=== PATIENT | male | born 1975 | race Caucasian/White ===

== ENCOUNTER 2020-01-23 09:27 | Emergency (ER) | payer OTHER ==
--- NOTE | 2020-01-23 09:57 | EKG REPORT ---
SEVERITY:- NORMAL ECG - SINUS RHYTHM : Confirmed by: Melissa Ware 23-Jan-2020 09:56:50
--- NOTE | 2020-01-23 10:25 | ER Document Report ---
ED Medical Screen (RME) - General Chief Complaint: Chest Pain Stated Complaint: CHEST PAIN Time Seen by Provider: 01/23/20 10:18 Mode of Arrival: Ambulatory Information source: Patient Notes: 54-year-old male presented to ED for complaint of chest pain that started last night in the epigastric area and went around to the back. Now with substernal chest pain. He states it is very sharp 4-5 pain. He smokes a pack a day drinks maybe every 4 5 months no drugs works at [employer] states he has no medical or surgical history. Patient is alert oriented respirations regular nonlabored speaking in full sentences. He denies any nausea vomiting fever. I have greeted and performed a rapid initial assessment of this patient. A comprehensive ED assessment and evaluation of the patient, analysis of test results and completion of medical decision making process will be conducted by an additional ED providers. - Related Data Allergies/Adverse Reactions: No Known Allergies Allergy (Verified 01/23/20 10:18) Physical Exam - Vital signs Vitals: Temp Pulse Resp BP Pulse Ox 97.9 F 55 L 18 134/78 H 100 01/23/20 09:43 01/23/20 09:43 01/23/20 09:43 01/23/20 09:43 01/23/20 09:43 Course - Vital Signs Vital signs: Temp Pulse Resp BP Pulse Ox 97.9 F 55 L 18 134/78 H 100 01/23/20 09:43 01/23/20 09:43 01/23/20 09:43 01/23/20 09:43 01/23/20 09:43
[2020-01-23] MEDS ORDERED: LIDOCAINE 2% VISCOUS SOLN 15 ML UDCUP PO ONE (10:49)
[2020-01-23] MEDS ORDERED: MAG HYDROX/AL HYDROX/SIMETH SUSP 30 ML UDCUP PO ONE (10:49)
[2020-01-23] MEDS ORDERED: METOCLOPRAMIDE HCL ORAL SOLN 10 MG/10 ML UDCUP PO ONE (10:49)
--- NOTE | 2020-01-23 10:53 | ER Document Report ---
ED General - General Chief Complaint: Chest pain Stated Complaint: CHEST PAIN Time Seen by Provider: 01/23/20 10:18 Mode of Arrival: Ambulatory - HPI Notes: 44-year-old male presents emergency room with epigastric abdominal pain that started at 1:00 this morning while playing video game states that it bothered him for a little while, did not take any ywrl-[id number] medications in the mid to bed. Patient states when he got up to go to work this morning he noticed pain in the epigastric area that traveled over his ribs, reports pain is 4 out of 5 reports that it is sharp and tight, denies any pressure on the chest. Patient states that the pain radiates to his back. Patient states he had a carmen lar event a month ago and it lasted around 5 to 6 hours. 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 Patient states he smokes about a pack a day for the last 30 years, does not take any medications. Patient does not know his family history due to adoption. Patient has not gone to a doctor in "years". Reports his last bowel movement was yesterday. Has not tried any ramh-vmk-[id number] medications for these issues. - Related Data Allergies/Adverse Reactions: No Known Allergies Allergy (Verified 01/23/20 10:18) Past Medical History - General Information source: Patient - Social History Smoking Status: Current Every Day Smoker Chew tobacco use (# tins/day): No Frequency of alcohol use: Rare Drug Abuse: None Family History: Reviewed & Not Pertinent Review of Systems - Review of Systems Constitutional: No symptoms reported EENT: No symptoms reported Cardiovascular: See HPI Respiratory: No symptoms reported Gastrointestinal: See HPI Genitourinary: No symptoms reported Male Genitourinary: No symptoms reported Musculoskeletal: No symptoms reported Skin: No symptoms reported Hematologic/Lymphatic: No symptoms reported Neurological/Psychological: No symptoms reported Physical Exam - Vital signs Vitals: Temp Pulse Resp BP Pulse Ox 97.9 F 55 L 18 134/78 H 100 01/23/20 09:43 01/23/20 09:43 01/23/20 09:43 01/23/20 09:43 01/23/20 09:43 - Notes Notes: MEDICATIONS: I agree with the patient medications as charted by the RN. ALLERGIES: I agree with the allergies as charted by the RN. PAST MEDICAL HISTORY/PAST SURGICAL HISTORY: Reviewed and agree as charted by RN. SOCIAL HISTORY: Reviewed and agree as charted by RN. FAMILY HISTORY: No significant familial comorbid conditions directly related to patient complaint EXAM: Reviewed vital signs as charted by RN. PHYSICAL EXAMINATION:reviewed vital signs by RN GENERAL: Well-appearing, well-nourished and in no acute distress. HEAD: Atraumatic, normocephalic. EYES: Pupils equal round and reactive to light, extraocular movements intact, sclera anicteric, conjunctiva are normal. ENT: Nares patent, oropharynx clear without exudates. Moist mucous membranes. NECK: Normal range of motion, supple without lymphadenopathy LUNGS: Breath sounds clear to auscultation bilaterally and equal. No wheezes rales or rhonchi. HEART: Regular rate and rhythm without murmurs ABDOMEN: Soft, epigastric tenderness, right upper quadrant tenderness on palpation, positive Pruitt sign nondistended abdomen. No guarding, no rebound. No masses appreciated. Musculoskeletal: Normal range of motion, no pitting or edema. No cyanosis. NEUROLOGICAL: Cranial nerves grossly intact. Normal speech, normal gait. Normal sensory, motor exams PSYCH: Normal mood, normal affect. SKIN: Warm, Dry, normal turgor, no rashes or lesions noted. Course - Re-evaluation Re-evalutation: 01/23/20 10:53 Afebrile vital stable no distress. Nurses notes reviewed. CBC negative for leukocytosis or anemia, CMP negative for hepatic renal dysfunction, lipase normal. Troponin normal x2. EKG unremarkable. Heart score is 1 which is a risk of myocardial infarction 0.9 to 1.7%. patient given GI cocktail which he states did help with his pain. right upper quadrant ultrasound unremarkable. CT abdomen pelvis does show contracted gallbladder with gallstones in the gallbladder neck. Mild gallbladder wall thickening may be secondary to contracted state. Cannot exclude acute cholecystitis. Contacted Dr.Faustino Meyer, surgeon community relations liaison, at 1530, he states he will come down to see patient. Initially Dr. Meyer stated that he was going to admit patient however patient refuses to stay and states that he will see Dr. Meyer outpatient for outpati ent surgery. Discussed with patient that he does need to follow a low-fat diet. Dr. Meyer did not any medications such as antibiotics or PPI. Patient states that he would like to go home today and not have surgery today, we will give him pain medications to go home with. advised to not drive, drink alcohol or operate heavy machinery while taking pain medication because sedation, impairment of cognitive function. Advised to make an appointment with outpatient surgery to have his outpatient cholecystectomy. Patient was agreeable and stated he would do this. Advised patient to return to the emergency room immediately if he experiences any worsening symptoms. After performing a Medical Screening Examination, I estimate there is LOW risk for ACUTE APPENDICITIS, BOWEL OBSTRUCTION,, PERFORATED DIVERTICULITIS, INCARCERATED HERNIA, PANCREATITIS, TESTICULAR TORSION or PERFORATED ULCER, thus I consider the discharge disposition reasonable. Also, there is no evidence or peritonitis, sepsis, or toxicity. I have reevaluated this patient multiple times and no significant life threatening changes are noted. The patient and I have discussed the diagnosis and risks, and we agree with discharging home with close follow-up with the understanding that symptoms and presentations can change. We also discussed returning to the Emergency Department immediately if new or worsening symptoms occur. We have discussed the symptoms which are most concerning (e.g., bloody stool, fever, changing or worsening pain, intractable vomiting - standard verbal up date) that necessitate immediate return. 01/23/20 16:32 - Vital Signs Vital signs: Temp Pulse Resp BP Pulse Ox 97.9 F 55 L 17 130/86 H 100 01/23/20 09:43 01/23/20 09:43 01/23/20 13:01 01/23/20 15:01 01/23/20 15:01 - Laboratory Result Diagrams: 01/23/20 11:15 01/23/20 11:15 Laboratory results interpreted by me: 01/23/20 11:15 Urine Blood SMALL H - EKG Interpretation by Hi EKG shows normal: Sinus rhythm Rate: Bradycardia Additional EKG results interpreted by ia: 01/23/20 10:52 Heart rate 55, normal sinus rhythm, P axis 80, QRS axis 43, T axis 39. Was interpreted by Dr. Griffiths, [facility] [place] physician. No other prior EKG to refer to for comparison. No STEMI, no ST segment elevations. Discharge - Discharge Clinical Impression: Acute cholecystitis Condition: Stable Disposition: HOME, SELF-CARE Unit Admitted: Surgical Floor Instructions: Low-Fat Diet ([facility]) Additional Instructions: Dr. Meyer, surgeon was at bedside and states that you opted to have outpatient cholecystectomy done because he did not want to stay in the hospital. Is imperative that you follow a low-fat diet and follow-up with the outpatient surgery center to make an appointment to have your gallbladder removed. If it anytime you have any worsening pain, vomiting, please return to the emergency room immediately Forms: Return to Work Referrals: DOROTHY MEYER MD [ACTIVE STAFF] - Follow up tomorrow (make an appointment with out patient surgery) TREV LOUISE MD [COMMUNITY BASED STAFF] - Follow up as needed
[2020-01-23 11:41] LABS: ABSOLUTE BASOPHILS # (AUTO) 0.1 10^3/uL (0.0-0.2); ABSOLUTE EOSINOPHILS # (AUTO) 0.3 10^3/uL (0.0-0.6); ABSOLUTE LYMPHOCYTES (AUTO) 1.8 10^3/uL (0.5-4.7); ABSOLUTE MONOCYTES (AUTO) 0.5 10^3/uL (0.1-1.4); ABSOLUTE NEUT (AUTO) 4.4 10^3/uL (1.7-8.2); BASOPHILS % (AUTO) 1.5 % (0-2); EOSINOPHILS % (AUTO) 4.3 % (0-6); HEMATOCRIT 41.5 % (37.9-51.0); HEMOGLOBIN 14.4 g/dL (13.5-17.0); LYMPHOCYTES % (AUTO) 25.6 % (13-45); MEAN CORPUSCULAR HGB CONC 34.7 g/dL (32.0-36.0); MEAN CORPUSCULAR VOLUME 87 fl (80-97); MONOCYTES % (AUTO) 7.1 % (3-13); PLATELET COUNT 278 10^3/uL (150-450); RED CELL DISTRIBUTION WIDTH 13.5 % (11.5-14.0); SEGMENTED NEUTROPHILS % (AUTO) 61.5 % (42-78); TOTAL CELLS COUNTED % (AUTO) 100 %; WHITE BLOOD COUNT 7.1 10^3/uL (4.0-10.5)
[2020-01-23 11:49] LABS: APPEARANCE,URINE CLEAR; BILIRUBIN,URINE NEGATIVE (NEGATIVE); COLOR,URINE STRAW; GLUCOSE, URINE NEGATIVE (NEGATIVE); KETONES,URINE NEGATIVE (NEGATIVE); LEUKOCYTE ESTERASE,URINE NEGATIVE (NEGATIVE); NITRITE,URINE NEGATIVE (NEGATIVE); PROTEIN,URINE NEGATIVE (NEGATIVE); URINE SPECIFIC GRAVITY 1.003; UROBILINOGEN,URINE NEGATIVE mg/dL (<2.0)
--- NOTE | 2020-01-23 11:57 | RADIOLOGY REPORT (SQ) ---
EXAM DESCRIPTION: CHEST 2 VIEWS IMAGES COMPLETED DATE/TIME: 01/23/2020 11:30 am REASON FOR STUDY: epigastric chest pain COMPARISON: None. EXAM PARAMETERS: NUMBER OF VIEWS: two views TECHNIQUE: Digital Frontal and Lateral radiographic views of the chest acquired. RADIATION DOSE: NA LIMITATIONS: none FINDINGS: LUNGS AND PLEURA: No opacities, masses or pneumothorax. No pleural effusion. MEDIASTINUM AND HILAR STRUCTURES: No masses or contour abnormalities. HEART AND VASCULAR STRUCTURES: Heart normal size. No evidence for failure. BONES: No acute findings. HARDWARE: None in the chest. OTHER: No other significant finding. IMPRESSION: NO ACUTE RADIOGRAPHIC FINDING IN THE CHEST. TECHNICAL DOCUMENTATION: JOB ID: [id number] 2010 [employer]- All Rights Reserved [place] location - IP/workstation name: [id number]
[2020-01-23 12:00] LABS: ALBUMIN 4.7 g/dL (3.5-5.0); ALKALINE PHOSPHATASE 48 U/L (38-126); ANION GAP 8 (5-19); ASPARTATE AMINO TRANSFERASE 20 U/L (17-59); BILIRUBIN,DIRECT 0.3 mg/dL (0.0-0.4); BILIRUBIN,TOTAL 0.5 mg/dL (0.2-1.3); BLOOD UREA NITROGEN 14 mg/dL (7-20); CARBON DIOXIDE 30 mmol/L (22-30); CHLORIDE 101 mmol/L (98-107); GLUCOSE 100 mg/dL (75-110); POTASSIUM 4.3 mmol/L (3.6-5.0); TOTAL PROTEIN 6.8 g/dL (6.3-8.2)
--- NOTE | 2020-01-23 12:43 | RADIOLOGY REPORT (SQ) ---
EXAM DESCRIPTION: U/S ABDOMEN LIMITED W/O DOP IMAGES COMPLETED DATE/TIME: 01/23/2020 11:48 am REASON FOR STUDY: epigastric chest pain COMPARISON: None. TECHNIQUE: Dynamic and static grayscale images acquired of the abdomen and recorded on PACS. Additio nal selected color Doppler and spectral images recorded. LIMITATIONS: Midline bowel gas FINDINGS: PANCREAS: Not visualized due to overlying bowel gas LIVER: No masses. Echotexture normal. LIVER VASCULATURE: Normal directional flow of the main portal vein and hepatic veins. GALLBLADDER: No stones. Normal wall thickness. No pericholecystic fluid. ULTRASOUND-DETECTED YAO'S SIGN: Negative. INTRAHEPATIC DUCTS AND COMMON DUCT: CBD and intrahepatic ducts normal caliber. No filling defects. INFERIOR VENA CAVA: Normal flow. AORTA: No aneurysm. RIGHT KIDNEY: Normal size. Normal echogenicity. No solid or suspicious masses. No hydronephrosis. No calcifications. PERITONEAL AND RIGHT PLEURAL SPACE: No ascites or effusions. OTHER: No other significant findings. IMPRESSION: MIDLINE PANCREAS NOT SEEN DUE TO MIDLINE BOWEL GAS. OTHERWISE UNREMARKABLE RIGHT UPPER QUADRANT ULTRASOUND. TECHNICAL DOCUMENTATION: JOB ID: [id number] 2010 [employer]- All Rights Reserved [place] location - IP/workstation name: [id number]
--- NOTE | 2020-01-23 15:28 | RADIOLOGY REPORT (SQ) ---
EXAM DESCRIPTION: CT ABD/PELVIS WITH IV ONLY IMAGES COMPLETED DATE/TIME: 01/23/2020 1:46 pm REASON FOR STUDY: RUQ abd pain, hematuria COMPARISON: Abdominal ultrasound same date. TECHNIQUE: CT scan of the abdomen and pelvis performed using helical scanning technique with dynamic intravenous contrast injection. No oral contrast. Images reviewed with lung, soft tissue, and bone windows. Reconstructed coronal and sagittal MPR images reviewed. Delayed images for evaluation of the urinary system also acquired. All images stored on PACS. All CT scanners at this facility use dose modulation, iterative reconstruction, and/or weight based d osing when appropriate to reduce radiation dose to as low as reasonably achievable (ALARA). [facility]: Dose Right [facility]: CareDose [facility]: Dose Right [facility]: Teradose 4D [facility]: Plasmon CONTRAST TYPE AND DOSE: contrast/concentration: Isovue 350.00 mmol/ml; Total Contrast Delivered: 99. 0 ml; Total Saline Delivered: 54.8 ml RENAL FUNCTION: GFR > 60. RADIATION DOSE: CT Rad equipment meets quality standard of care and radiation dose reduction techniq ues were employed. CTDIvol: 10.7 - 14.8 mGy. DLP: 1370 mGy-cm.. LIMITATIONS: None. FINDINGS: LOWER CHEST: No significant findings. No nodules or infiltrates. LIVER: Normal size. No masses. No dilated ducts. SPLEEN: Normal size. No focal lesions. PANCREAS: No masses. No significant calcifications. No adjacent inflammation or peripancreatic fluid collections. Pancreatic duct not dilated. GALLBLADDER: The gallbladder is contracted. There is a large gallstone in the gallbladder neck. Mil d gallbladder wall thickening may be secondary to contracted state, gallbladder wall measures up to 5 mm thickness. No pericholecystic fluid or inflammatory change. ADRENAL GLANDS: No significant masses or asymmetry. RIGHT KIDNEY AND URETER: No solid masses. No significant calcifications. No hydronephrosis or hyd roureter. LEFT KIDNEY AND URETER: No solid masses. No significant calcifications. No hydronephrosis or hydr oureter. AORTA AND VESSELS: No aneurysm. No dissection. Renal arteries, SMA, celiac without stenosis. RETROPERITONEUM: No retroperitoneal adenopathy, hemorrhage or masses. BOWEL AND PERITONEAL CAVITY: No masses or inflammatory changes. No free fluid or peritoneal masses. APPENDIX: Normal. PELVIS: No mass. No free fluid. Normal bladder. ABDOMINAL WALL: No masses. No hernias. BONES: Chronic bilateral L5 pars interarticularis defects with no significant spondylolisthesis. No suspicious bone lesions. OTHER: No other significant finding. IMPRESSION: 1. Contracted gallbladder with gallstone in the gallbladder neck. Mild gallbladder wall thickening ma y be secondary to contracted state. Cannot entirely exclude acute cholecystitis. No surrounding per icholecystic fluid. Clinical correlation and correlation with laboratory values recommended. TECHNICAL DOCUMENTATION: JOB ID: [id number] Quality ID # [id number]: Final reports with documentation of one or more dose reduction techniques (e.g., Au tomated exposure control, adjustment of the mA and/or kV according to patient size, use of iterative reconstruction technique) 2010 [employer]- All Rights Reserved [place] location - IP/workstation name: [id number]
[2020-01-23] MEDS ORDERED: HYDROCODONE/ACETAMINOPHEN 5-325 MG (6 TAB/ER DISP) PO PRN (16:20)
--- NOTE | 2020-01-23 16:26 | PDOC CONSULTATION ---
Consultation Consult Date: 01/23/20 Provider Consulted: DOROTHY MEYER Consult reason:: Gallstone History of Present Illness History of Present Illness: RAYMOND ESCALANTE is a 44 year old male who had some right right upper quadrant pains about a month ago that only lasted for about 4 hours. Last night had pizza and at 1AM woke up with epigastric pains radiating to the upper abdomen and to his spines. At 7 AM this morning pain subsided and went to work. At work the pains recurred and went to ED. Denies any nausea vomiting fever no chills. He had a ultrasound of the gallbladder which was unremarkable. However a CT scan of the abdomen revealed a contracted gallbladder with gallstones. No evidence of definite acute cholecystitis. His white count is normal. His right upper quadrant pains have subsided. Social History Smoking Status: Current Every Day Smoker Electronic Cigarette use?: No Family History Parental Family History Reviewed: Yes Children Family History Reviewed: No Sibling(s) Family History Reviewed.: No Medication/Allergy Allergies/Adverse Reactions: No Known Allergies Allergy (Verified 01/23/20 10:18) Review of Systems Constitutional: PRESENT: as per HPI Gastrointestinal: PRESENT: abdominal pain Physical Exam Vital Signs: Temp Pulse Resp BP Pulse Ox 97.9 F 55 L 17 130/86 H 100 01/23/20 09:43 01/23/20 09:43 01/23/20 13:01 01/23/20 15:01 01/23/20 15:01 Intake & Output 01/22/20 01/23/20 01/24/20 06:59 06:59 06:59 Weight 90.74 kg General appearance: PRESENT: no acute distress Head exam: PRESENT: atraumatic Eye exam: PRESENT: conjunctiva pink Mouth exam: PRESENT: moist Neck exam: PRESENT: full ROM Respiratory exam: PRESENT: clear to auscultation shannon Cardiovascular exam: PRESENT: RRR Pulses: PRESENT: normal radial pulses Vascular exam: PRESENT: normal capillary refill GI/Abdominal exam: PRESENT: soft - Practically nontender Rectal exam: PRESENT: deferred Extremities exam: PRESENT: full ROM Musculoskeletal exam: PRESENT: ambulatory Neurological exam: PRESENT: alert, oriented to person, oriented to place, oriented to time, oriented to situation Psychiatric exam: PRESENT: appropriate affect Skin exam: PRESENT: normal color, warm Results Laboratory Results: 01/23/20 11:15 10/17/20 11:15 01/23/20 01/23/20 01/23/20 11:15 11:15 11:15 WBC 7.1 RBC 4.80 Hgb 14.4 Hct 41.5 MCV 87 MCH 30.0 MCHC 34.7 RDW 13.5 Plt Count 278 Seg Neutrophils % 61.5 Sodium 139.4 Potassium 4.3 Chloride 101 Carbon Dioxide 30 Anion Gap 8 BUN 14 Creatinine 0.91 Est GFR ( Amer) > 60 Glucose 100 Calcium 10.0 Total Bilirubin 0.5 AST 20 Alkaline Phosphatase 48 Total Protein 6.8 Albumin 4.7 Lipase 74.4 Urine Color STRAW Urine Appearance CLEAR Urine pH 6.0 Ur Specific [place] 1.003 Urine Protein NEGATIVE Urine Glucose (UA) NEGATIVE Urine Ketones NEGATIVE Urine Blood SMALL H Urine Nitrite NEGATIVE Ur Leukocyte Esterase NEGATIVE Urine WBC (Auto) 0 Urine RBC (Auto) 1 01/23/20 01/23/20 11:15 13:45 Troponin I < 0.012 < 0.012 Impressions: Abdomen Ultrasound 01/23/20 10:23 IMPRESSION: MIDLINE PANCREAS NOT SEEN DUE TO MIDLINE BOWEL GAS. OTHERWISE UNREMARKABLE RIGHT UPPER QUADRANT ULTRASOUND. Chest X-Ray 01/23/20 10:23 IMPRESSION: NO ACUTE RADIOGRAPHIC FINDING IN THE CHEST. Abdomen/Pelvis CT 01/23/20 12:28 IMPRESSION: 1. Contracted gallbladder with gallstone in the gallbladder neck. Mild gall bladder wall thickening may be secondary to contracted state. Cannot entirely exclude acute cholecystitis. No surrounding pericholecystic fluid. Clinical correlation and correlation with laboratory values recommended. Assessment & Plan - Diagnosis (1) Cholelithiasis Is this a current diagnosis for this admission?: Yes (2) Biliary colic Is this a current diagnosis for this admission?: Yes - Time Time Spent: 30 to 50 Minutes - Plan Summary Plan Summary: 44-year-old male with right upper quadrant pains about a month ago and it subsided after 4hours. Last night had pizza and developed pains in the right upper upper quadrant and epigastric areas radiating to the back around 1 AM this morning. Pain subsided around 7:00 this morning and went to work. Work-up for pains recurred and went to ED. He had an ultrasound of the gallbladder which was unremarkable. However a CT scan of the abdomen showed a contracted gallbladder with gallstone but no evidence of acute cholecystitis. His white count is normal and his LFTs are normal. His pains have subsided on its own without medications in the ED other than the p.o. cocktail there was given. On examination his abdomen is soft and nontender. He is hungry. Impression is cholelithiasis with biliary colic. Recommendation Patient may go home and told him to avoid any fatty or greasy food. He should call our surgical clinic to make an appointment next week to be scheduled for elective cholecystectomy. He agreed to this plan. However if pains recurs or develops nausea vomiting fever then he should go back to the emergency room.
[2020-01-23 17:03] VITALS: BP 156/70
== END 2020-01-23 17:01 | disposition home or self-care (01) ==
LOC: ER 09:27
DX: K80.00 Calculus of gallbladder with acute cholecystitis without obstruction (principal); R07.81 Pleurodynia; F17.200 Nicotine dependence, unspecified, uncomplicated; R31.9 Hematuria, unspecified
CPT/HCPCS: 93005; 99285; 36415; 83690; 85025; 80053; 81001; 84484; 71046; 76705; 74177; 93010; J3490

== ENCOUNTER 2020-01-29 01:19 | Emergency (ER) | payer OTHER ==
--- NOTE | 2020-01-29 01:40 | ER Document Report ---
ED Medical Screen (RME) - General Chief Complaint: Chest Pain Stated Complaint: CHEST PAIN Time Seen by Provider: 01/29/20 01:36 Mode of Arrival: Ambulatory Information source: Patient Notes: 44-year-old male coming in today with epigastric pain that wraps around his right upper quadrant and into his back. Says he was here a week ago. He was told by the surgeon he did have his gallbladder out. Tonight the pain is returned. No fevers. No nausea or vomiting General exam: No distress Cardiac regular rate and rhythm Pulmonary clear to auscultation Abdomen epigastric tenderness I have greeted and performed a rapid initial assessment of this patient. A comprehensive ED assessment and evaluation of the patient, analysis of test results and completion of the medical decision making process will be conducted by additional ED providers. - Related Data Allergies/Adverse Reactions: No Known Allergies Allergy (Verified 01/23/20 10:18) Physical Exam - Vital signs Vitals: Temp Pulse Resp BP Pulse Ox 98.2 F 63 18 135/90 H 96 01/29/20 01:31 01/29/20 01:31 01/29/20 01:31 01/29/20 01:31 01/29/20 01:31 Course - Vital Signs Vital signs: Temp Pulse Resp BP Pulse Ox 98.2 F 63 18 135/90 H 96 01/29/20 01:31 01/29/20 01:31 01/29/20 01:31 01/29/20 01:31 01/29/20 01:31
[2020-01-29 02:13] LABS: ABSOLUTE BASOPHILS # (AUTO) 0.1 10^3/uL (0.0-0.2); ABSOLUTE EOSINOPHILS # (AUTO) 0.2 10^3/uL (0.0-0.6); ABSOLUTE MONOCYTES (AUTO) 0.6 10^3/uL (0.1-1.4); ABSOLUTE NEUT (AUTO) 3.4 10^3/uL (1.7-8.2); BASOPHILS % (AUTO) 1.3 % (0-2); EOSINOPHILS % (AUTO) 3.9 % (0-6); HEMATOCRIT 39.8 % (37.9-51.0); HEMOGLOBIN 14.2 g/dL (13.5-17.0); LYMPHOCYTES % (AUTO) 31.3 % (13-45); MEAN CORPUSCULAR HEMOGLOBIN 30.8 pg (27.0-33.4); MEAN CORPUSCULAR HGB CONC 35.7 g/dL (32.0-36.0); MEAN CORPUSCULAR VOLUME 86 fl (80-97); MONOCYTES % (AUTO) 9.3 % (3-13); PLATELET COUNT 267 10^3/uL (150-450); RED BLOOD COUNT 4.61 10^6/uL (4.35-5.55); RED CELL DISTRIBUTION WIDTH 13.6 % (11.5-14.0); SEGMENTED NEUTROPHILS % (AUTO) 54.2 % (42-78); TOTAL CELLS COUNTED % (AUTO) 100 %; WHITE BLOOD COUNT 6.3 10^3/uL (4.0-10.5)
[2020-01-29 02:18] LABS: ALBUMIN 4.4 g/dL (3.5-5.0); ALKALINE PHOSPHATASE 45 U/L (38-126); ANION GAP 9 (5-19); ASPARTATE AMINO TRANSFERASE 21 U/L (17-59); BILIRUBIN,DIRECT 0.3 mg/dL (0.0-0.4); BILIRUBIN,TOTAL 0.5 mg/dL (0.2-1.3); BLOOD UREA NITROGEN 10 mg/dL (7-20); CALCIUM 9.7 mg/dL (8.4-10.2); CARBON DIOXIDE 27 mmol/L (22-30); CHLORIDE 101 mmol/L (98-107); GLUCOSE 101 mg/dL (75-110); TOTAL PROTEIN 6.7 g/dL (6.3-8.2)
--- NOTE | 2020-01-29 02:54 | RADIOLOGY REPORT (SQ) ---
EXAM DESCRIPTION: US ABDOMEN LIMITED COMPLETED DATE/TME: 01/29/2020 01:37 CLINICAL HISTORY: 44 years, Male, epig pain Findings: Pancreas is within normal limits. Aorta and IVC are within normal limits. Liver measures 14.3 cm in length. No evidence for focal hepatic lesions. Portal vein demonstrates normal flow. Gallbladder demonstrates calculi with no evidence for wall thickening or pericholecystic fluid. No sonographic Pruitt sign. No biliary dilatation with CBD measuring 2 mm. Right kidney measures 11.2 cm in length. No right hydronephrosis. IMPRESSION: Cholelithiasis without any evidence for acute cholecystitis.
--- NOTE | 2020-01-29 03:00 | RADIOLOGY REPORT (SQ) ---
XR CHEST 1 VIEW CLINICAL STATEMENT: epig pain COMPARISON: 01/23/2020 FINDINGS: Cardiomediastinal silhouette is within normal limits. There is no focal lung consolidation or pleural effusion. No evidence of pulmonary edema or pneumothorax. IMPRESSION: No acute cardiopulmonary disease.
--- NOTE | 2020-01-29 04:17 | ER Document Report ---
ED GI/ - General Chief Complaint: Abdominal Pain Stated Complaint: CHEST PAIN Time Seen by Provider: 01/29/20 01:36 Mode of Arrival: Ambulatory Notes: CHIEF COMPLAINT: Upper abdominal pain HPI: 44-year-old male with history of cholelithiasis diagnosed 5 days ago presenting with upper abdominal pain with radiation into the chest and around into the right upper quadrant region. Patient was playing video games at the time. States it lasted several hours. Had some nausea no vomiting. No fever. ROS: See HPI - all other systems were reviewed and are otherwise negative Constitutional: no fever Eyes: no drainage, no blurred vision ENT: no runny nose, no sore throat Cardiovascular: + chest pain Resp: no SOB, no cough GI: no vomiting, no diarrhea, + abdominal pain : no dysuria Integumentary: no rash Allergy: no hives Musculoskeletal: no extremity pain or swelling Neurological: no numbness/tingling, no weakness MEDICATIONS: I agree with the patient medications as charted by the RN. ALLERGIES: I agree with the allergies as charted by the RN. PAST MEDICAL HISTORY/PAST SURGICAL HISTORY: Reviewed and agree as charted by RN. SOCIAL HISTORY: Reviewed and agree as charted by RN. FAMILY HISTORY: No significant familial comorbid conditions directly related to patient complaint EXAM: Reviewed vital signs as charted by RN. CONSTITUTIONAL: Alert and oriented and responds appropriately to questions. Well-appearing; well-nourished HEAD: Normocephalic; atraumatic EYES: PERRL; Conjunctivae clear, sclerae non-icteric ENT: normal nose; no rhinorrhea; moist mucous membranes; pharynx without lesions noted, no uvula edema or deviation, no tonsillar hypertrophy, phonation normal NECK: Supple without meningismus; non-tender; no cervical lymphadenopathy, no masses CARD: RRR; no murmurs, no clicks, no rubs, no gallops; symmetric distal pulses RESP: Normal chest excursion without splinting or tachypnea; breath sounds clear and equal bilaterally; no wheezes, no rhonchi, no rales, pulse oximetry 98% on room air not hypoxic ABD/GI: Normal bowel sounds; non-distended; soft, non-tender, no rebound, no guarding; no palpable organomegaly or masses. BACK: The back appears normal and is non-tender to palpation, there is no CVA tenderness EXT: Normal ROM in all joints; non-tender to palpation; no cyanosis, no effusions, no edema SKIN: Normal color for age and race; warm; dry; good turgor; no acute lesions noted NEURO: Moves all extremities equally; Motor and sensory function intact PSYCH: The patient's mood and manner are appropriate. Grooming and personal hygiene are appropriate. MDM: 44-year-old male with known cholelithiasis presenting for right upper quadrant epigastric pain with some radiation into the chest and back. Diagnosed 5 days ago with cholelithiasis. Did not take his pain medication and achieve resolution of symptoms although at the time that I have evaluated him he is completely pain-free. EKG normal sinus rhythm with a ventricular rate of 61. No other ectopy. Normal EKG. Interpreted by emergency department physician. OH 168 QT 416 QTc 419. Have low suspicion for ACS this is likely biliary colic. He is completely pain-free at this time. He states that he did try to follow- up with the surgery clinic but as [facility] must go through [facility]. He will call them today. - Related Data Allergies/Adverse Reactions: No Known Allergies Allergy (Verified 01/23/20 10:18) Home Medications: hydrocodone Past Medical History - General Information source: Patient - Social History Smoking Status: Current Every Day Smoker Family History: Reviewed & Not Pertinent Physical Exam - Vital signs Vitals: Temp Pulse Resp BP Pulse Ox 98.2 F 63 18 135/90 H 96 01/29/20 01:31 01/29/20 01:31 01/29/20 01:31 01/29/20 01:31 01/29/20 01:31 Course - Vital Signs Vital signs: Temp Pulse Resp BP Pulse Ox 98.2 F 63 18 135/90 H 96 01/29/20 01:31 01/29/20 01:31 01/29/20 01:31 01/29/20 01:31 01/29/20 01:31 - Laboratory Result Diagrams: 01/29/20 01:50 01/29/20 01:50 Laboratory results interpreted by me: 01/29/20 01:50 Sodium 136.6 L Discharge - Discharge Clinical Impression: Biliary colic Condition: Stable Disposition: HOME, SELF-CARE Additional Instructions: Low-fat low spice diet. Pain medications as prescribed for episodes of biliary colic. [facility] Prescriptions: Oxycodone HCl/Acetaminophen [Percocet 5-325 mg Tablet] 1 tab PO Q4H PRN #15 tab PRN Reason: Forms: Return to Work Referrals: [facility] [Provider Group] - Follow up as needed
[2020-01-29 05:13] VITALS: BP 115/77
--- NOTE | 2020-01-29 16:11 | EKG REPORT ---
SEVERITY:- NORMAL ECG - SINUS RHYTHM : Confirmed by: Marvel Us MD 29-Jan-2020 16:10:55
== END 2020-01-29 05:14 | disposition home or self-care (01) ==
LOC: ER 01:19
DX: K80.50 Calculus of bile duct without cholangitis or cholecystitis without obstruction (principal); R07.9 Chest pain, unspecified; R10.13 Epigastric pain; R10.10 Upper abdominal pain, unspecified; R10.11 Right upper quadrant pain; Z79.899 Other long term (current) drug therapy; F17.200 Nicotine dependence, unspecified, uncomplicated
CPT/HCPCS: 36415; 71045; 76705; 80053; 83690; 84484; 85025; 93005; 93010; 99285

== ENCOUNTER 2020-02-29 05:13 | Observation (INO) | payer OTHER ==
[2020-02-29] MEDS ORDERED: NORMAL SALINE 1000 ML 1,000 ML IV ONE (06:16)
[2020-02-29] MEDS ORDERED: ONDANSETRON HCL INJ/PF 4 MG/2 ML SDV IV ONE ×2 (06:17→13:41)
[2020-02-29] MEDS ORDERED: HYDROMORPHONE HCL INJ/PF 2 MG/ML AMPULE IV ONE ×2 (06:17→13:40)
[2020-02-29 06:36] LABS: ABSOLUTE BASOPHILS # (AUTO) 0.1 10^3/uL (0.0-0.2); ABSOLUTE EOSINOPHILS # (AUTO) 0.2 10^3/uL (0.0-0.6); ABSOLUTE MONOCYTES (AUTO) 0.6 10^3/uL (0.1-1.4); ABSOLUTE NEUT (AUTO) 9.4 10^3/uL (1.7-8.2); BASOPHILS % (AUTO) 0.8 % (0-2); EOSINOPHILS % (AUTO) 1.9 % (0-6); HEMATOCRIT 41.2 % (37.9-51.0); HEMOGLOBIN 13.7 g/dL (13.5-17.0); LYMPHOCYTES % (AUTO) 16.2 % (13-45); MEAN CORPUSCULAR HEMOGLOBIN 29.4 pg (27.0-33.4); MEAN CORPUSCULAR HGB CONC 33.3 g/dL (32.0-36.0); MEAN CORPUSCULAR VOLUME 88 fl (80-97); MONOCYTES % (AUTO) 5.1 % (3-13); PLATELET COUNT 255 10^3/uL (150-450); RED BLOOD COUNT 4.66 10^6/uL (4.35-5.55); TOTAL CELLS COUNTED % (AUTO) 100 %; WHITE BLOOD COUNT 12.4 10^3/uL (4.0-10.5)
[2020-02-29 07:21] LABS: ALBUMIN 4.7 g/dL (3.5-5.0); ALKALINE PHOSPHATASE 49 U/L (38-126); ANION GAP 10 (5-19); ASPARTATE AMINO TRANSFERASE 30 U/L (17-59); BILIRUBIN,DIRECT 0.3 mg/dL (0.0-0.4); BILIRUBIN,TOTAL 0.5 mg/dL (0.2-1.3); BLOOD UREA NITROGEN 12 mg/dL (7-20); CALCIUM 9.5 mg/dL (8.4-10.2); CARBON DIOXIDE 26 mmol/L (22-30); CHLORIDE 103 mmol/L (98-107); GLUCOSE 110 mg/dL (75-110); POTASSIUM 3.9 mmol/L (3.6-5.0); TOTAL PROTEIN 7.3 g/dL (6.3-8.2)
[2020-02-29 07:29] LABS: ALCOHOL < 10 mg/dL (NONE DETECTED)
--- NOTE | 2020-02-29 08:00 | RADIOLOGY REPORT (SQ) ---
Ultrasound right upper quadrant on 02/29/2020 at 7:10 AM CLINICAL INDICATION: Right upper quadrant pain COMPARISON: CT from 01/23/2020 FINDINGS: Multiple sonographic images are obtained throughout the right upper quadrant, both transverse and sagittal images are obtained. The visualized aorta is unremarkable. Limited visualized pancreas is unremarkable. Visualized liver is homogeneous without focal liver lesion. Visualized portal vein is patent and with a normal directional flow. There is echogenic focus with posterior shadowing in the gallbladder neck consistent with gallstone as was noted previously. No gallbladder wall thickening or pericholecystic fluid is noted. Right kidney shows no hydronephrosis. Common duct measures 6-7 mm which is borderline dilated. If clinically indicated consider MRCP. IMPRESSION: 1. Cholelithiasis. 2. Borderline dilated common duct, if clinically indicated consider MRCP.
--- NOTE | 2020-02-29 08:02 | RADIOLOGY REPORT (SQ) ---
Acute abdominal series x-ray three views on 02/29/2020 at 7:28 AM CLINICAL INDICATION: Generalized abdominal pain COMPARISON: Chest x-ray from 01/29/[address] abdomen and pelvis from 01/23/2020 FINDINGS: CHEST: The lungs are clear. Cardiac, hilar and mediastinal contours are within normal limits. Pulmonary vascularity is within normal limits. ABDOMEN: There is no free air. Bowel gas pattern is unremarkable. No increased stool to suggest constipation is noted. Calcification in the left pelvis is consistent with phlebolith. No other abnormal calcification or mass effect is noted. No bony abnormality is noted. IMPRESSION: 1. No acute cardiopulmonary disease. 2. Nonspecific abdomen.
[2020-02-29 08:29] LABS: APPEARANCE,URINE CLEAR; BILIRUBIN,URINE NEGATIVE (NEGATIVE); COLOR,URINE YELLOW; GLUCOSE, URINE NEGATIVE (NEGATIVE); KETONES,URINE TRACE mg/dL (NEGATIVE); LEUKOCYTE ESTERASE,URINE NEGATIVE (NEGATIVE); NITRITE,URINE NEGATIVE (NEGATIVE); PROTEIN,URINE 30 mg/dL (NEGATIVE)
[2020-02-29 09:06] LABS: URINE AMPHETAMINES SCREEN NEGATIVE; URINE BARBITURATES SCREEN NEGATIVE; URINE BENZODIAZEPINES SCREEN NEGATIVE; URINE COCAINE SCREEN NEGATIVE; URINE MARIJUANA (THC) SCREEN NEGATIVE; URINE METHADONE SCREEN NEGATIVE; URINE PHENCYCLIDINE SCREEN NEGATIVE
[2020-02-29] MEDS ORDERED: GLYCOPYRROLATE 1 MG/5 ML VIAL ONE (10:38)
[2020-02-29] MEDS ORDERED: DEXAMETHASONE SOD PHOSPHATE INJ 4 MG/1 ML VIAL ONE (10:38)
[2020-02-29] MEDS ORDERED: NEOSTIGMINE METHYLSULFATE 10 MG/10 ML VIAL ONE (10:38)
[2020-02-29] MEDS ORDERED: ONDANSETRON HCL INJ/PF 4 MG/2 ML SDV ONE (10:38)
[2020-02-29] MEDS ORDERED: ROCURONIUM BROMIDE INJ 50 MG/5 ML VIAL IV ONE (10:38)
[2020-02-29] MEDS ORDERED: KETOROLAC TROMETHAMINE 60 MG/2 ML SDV ONE (10:38)
[2020-02-29] MEDS ORDERED: LIDOCAINE 2% INJ-PF (20 MG/ML) 2 ML AMPUL ONE (10:38)
[2020-02-29] MEDS ORDERED: METOCLOPRAMIDE HCL INJ/PF 10 MG/2 ML SDV ONE (10:38)
--- NOTE | 2020-02-29 12:09 | ER Document Report ---
Entered by RONY GAO SCRIBE 02/29/20 0626 Acting as scribe for:MIKI BIANCHI MD ED GI/ - General Chief Complaint: Upper Abdominal Pain Stated Complaint: POSS GALLBLADDER ATTACK Time Seen by Provider: 02/29/20 06:11 Mode of Arrival: Ambulatory Information source: Patient Notes: This 44 year old male patient with a known history of cholelithiasis presents to the ED today with complaints of RUQ abdominal pain that started around midnight. Patient describes the pain as sharp and constant in nature. He reports associated nausea and vomiting that started at 0430 and continues in the ED. He mentions that he has a cholecyctecomy scheduled for 03/10 at the [facility]. Last meal was around 2300 last night. Denies fever of chills. - Related Data Allergies/Adverse Reactions: No Known Allergies Allergy (Verified 01/23/20 10:18) Home Medications: oxycodone Past Medical History - General Information source: Patient, [facility] Records - Social History Smoking Status: Current Every Day Smoker Chew tobacco use (# tins/day): No Smoking Education Provided: No Frequency of alcohol use: Rare Drug Abuse: None Lives with: Spouse/Significant other Family History: Reviewed & Not Pertinent Patient has suicidal ideation: No Patient has homicidal ideation: No Review of Systems - Review of Systems Constitutional: See HPI. denies: Chills, Fever EENT: No symptoms reported Cardiovascular: No symptoms reported Respiratory: No symptoms reported Gastrointestinal: See HPI, Abdominal pain, Nausea, Vomiting Genitourinary: No symptoms reported Male Genitourinary: No symptoms reported Musculoskeletal: No symptoms reported Skin: No symptoms reported Hematologic/Lymphatic: No symptoms reported Neurological/Psychological: No symptoms reported -: Yes All other systems reviewed and negative Physical Exam - Vital signs Vitals: Temp Pulse Resp BP Pulse Ox 98.2 F 69 18 132/102 H 98 02/29/20 05:35 02/29/20 05:35 02/29/20 05:35 02/29/20 05:35 02/29/20 05:35 - General General appearance: Alert In distress: None - HEENT Head: Normocephalic, Atraumatic Eyes: Normal Pupils: PERRL - Respiratory Respiratory status: No respiratory distress Chest status: Nontender Breath sounds: Normal Chest palpation: Normal - Cardiovascular Rhythm: Regular Heart sounds: Normal auscultation Murmur: No Friction rub: No Gallop: None auscultated - Abdominal Inspection: Normal Distension: No distension Bowel sounds: Normal Tenderness: Tender - RUQ tenderness to palpation Organomegaly: No organomegaly - Back Back: Normal, Nontender - Extremities General upper extremity: Normal inspection General lower extremity: Normal inspection. No: Edema - Neurological Neuro grossly intact: Yes Orientation: AAOx4 Peter Coma Scale Eye Opening: Spontaneous [place] Coma Scale Verbal: Oriented [place] Coma Scale Motor: Obeys Commands [place] Coma Scale Total: 15 - Psychological Associated symptoms: Normal affect, Normal mood - Skin Skin Temperature: Warm Skin Moisture: Dry Skin Color: Normal Course - Re-evaluation Re-evalutation: 02/29/20 15:08 Patient still having intermittent abdominal pain greatest in the right upper quadrant region where he has known diagnosis of cholelithiasis with cholecystitis. - Vital Signs Vital signs: Temp Pulse Resp BP Pulse Ox 97.9 F 51 L 16 132/88 H 97 02/29/20 12:22 02/29/20 12:22 02/29/20 08:00 02/29/20 12:22 02/29/20 12:22 02/29/20 15:08 Vital signs stable. - Laboratory Result Diagrams: 02/29/20 06:20 02/29/20 06:20 Laboratory results interpreted by me: 02/29/20 02/29/20 06:20 08:07 WBC 12.4 H Absolute Neuts (auto) 9.4 H Urine Protein 30 H Urine Ketones TRACE H Urine Blood MODERATE H Urine Urobilinogen 2.0 H Laboratories show moderate blood in urine trace ketones white blood cell 12.4 02/29/20 15:09 02/29/20 06:20 02/29/20 06:20 MCV 88 fl (80-97) 02/29/20 06:20 MCH 29.4 pg (27.0-33.4) 02/29/20 06:20 MCHC 33.3 g/dL (32.0-36.0) 02/29/20 06:20 RDW 14.0 % (11.5-14.0) 02/29/20 06:20 Seg Neutrophils % 76.0 % (42-78) 02/29/20 06:20 Chloride 103 mmol/L (98-107) 02/29/20 06:20 Carbon Dioxide 26 mmol/L (22-30) 02/29/20 06:20 Anion Gap 10 (5-19) 02/29/20 06:20 Est GFR ( Amer) > 60 (>60) 02/29/20 06:20 Glucose 110 mg/dL (75-110) 02/29/20 06:20 Lactic Acid 0.9 mmol/L (0.7-2.1) 02/29/20 06:48 Calcium 9.5 mg/dL (8.4-10.2) 02/29/20 06:20 Total Bilirubin 0.5 mg/dL (0.2-1.3) 02/29/20 06:20 AST 30 U/L (17-59) 02/29/20 06:20 Alkaline Phosphatase 49 U/L (38-126) 02/29/20 06:20 Total Protein 7.3 g/dL (6.3-8.2) 02/29/20 06:20 Albumin 4.7 g/dL (3.5-5.0) 02/29/20 06:20 Lipase 248.6 U/L (23-300) 02/29/20 06:20 Urine Color YELLOW 02/29/20 08:07 Urine Appearance CLEAR 02/29/20 08:07 Urine pH 5.0 (5.0-9.0) 02/29/20 08:07 Ur Specific [place] 1.030 02/29/20 08:07 Urine Protein 30 mg/dL (NEGATIVE) H 02/29/20 08:07 Urine Glucose (UA) NEGATIVE mg/dL (NEGATIVE) 02/29/20 08:07 Urine Ketones TRACE mg/dL (NEGATIVE) H 02/29/20 08:07 Urine Blood MODERATE (NEGATIVE) H 02/29/20 08:07 Urine Nitrite NEGATIVE (NEGATIVE) 02/29/20 08:07 Ur Leukocyte Esterase NEGATIVE (NEGATIVE) 02/29/20 08:07 Urine WBC (Auto) 1 /HPF 02/29/20 08:07 Urine RBC (Auto) 12 /HPF 02/29/20 08:07 - Diagnostic Test Radiology reviewed: Image reviewed, Reports reviewed Radiology results interpreted by me: 02/29/20 12:24 Acute Abdomen Series 02/29/20 06:15 IMPRESSION: 1. No acute cardiopulmonary disease. 2. Nonspecific abdomen. Abdomen Ultrasound 02/29/20 06:45 IMPRESSION: 1. Cholelithiasis. 2. Borderline dilated common duct, if clinically indicated consider MRCP. Abdomen MRI 02/29/20 08:05 IMPRESSION: Cholelithiasis noting uniform mural edema suggesting early cholecystitis. Chronic and incidental findings as detailed above. 02/29/20 15:09 Acute abdominal series shows no acute cardia pulmonary disease abdomen ultrasound shows cholelithiasis with borderline dilated common bile duct abdomen MRCP shows cholelithiasis with mural edema suggesting early cholecysTITIS. - Consults Dr. Cid, Surgicalist Time consulted: 14:11 Consulted provider: will come to ER Discharge - Discharge Clinical Impression: Acute cholecystitis due to biliary calculus, Biliary colic Condition: Stable Disposition: ADMITTED INPATIENT Admitting Provider: Surgicalist Ankur Cid MD Unit Admitted: Surgical Floor I personally performed the services described in the documentation, reviewed and edited the documentation which was dictated to the scribe in my presence, and it accurately records my words and actions.
--- NOTE | 2020-02-29 12:22 | RADIOLOGY REPORT (SQ) ---
EXAM DESCRIPTION: MRI ABDOMEN WITHOUT IMAGES COMPLETED DATE/TIME: 02/29/2020 11:58 am REASON FOR STUDY: GALLSTONES/MRCP REQUESTED. COMPARISON: Right upper quadrant ultrasound 02/29/2020 TECHNIQUE: Noncontrast MRCP. Source and MIP images reviewed. LIMITATIONS: None. FINDINGS: GALLBLADDER: Re- demonstration of a 1.5 cm gallstone within the gallbladder neck. There i s mild circumferential mural edema without significant pericholecystic inflammatory changes. INTRAHEPATIC DUCTS: Nondilated. EXTRAHEPATIC DUCTS: Common duct is normal caliber. No dilatation of the pancreatic duct. No ductal filling defects noted. PANCREAS: Generally homogeneous, no gross mass or significant signal alteration. No surrounding infl ammatory changes or fluid. Pancreatic duct is normal. LIVER, SPLEEN, KIDNEYS, ADRENALS: Incidental note is made of 3 1 to 2 cm hepatic cysts. No significa nt masses. The adrenals, spleen, and kidneys appear normal for technique. VESSELS: No evidence of aneurysm. Grossly appropriate flow voids in the major vascular structures. LUNG BASES: Grossly clear. OTHER: No other significant finding. IMPRESSION: Cholelithiasis noting uniform mural edema suggesting early cholecystitis. Chronic and i ncidental findings as detailed above. TECHNICAL DOCUMENTATION: JOB ID: [id number] 2010 [employer]- All Rights Reserved Reading location - IP/workstation name: [email or web address]
[2020-02-29] MEDS ORDERED: DEXTROSE 5%-LACTATED RINGERS 1,000 ML IV ONE (14:08)
[2020-02-29] MEDS ORDERED: PIPERACILLIN/TAZOBACTAM 3.375 GM VIAL IV ONE (15:08)
[2020-02-29] MEDS ORDERED: ONDANSETRON HCL INJ/PF 4 MG/2 ML SDV IV PRN ×2 (15:09→17:09)
[2020-02-29] MEDS ORDERED: NORMAL SALINE 1000 ML 1,000 ML IV PRN (15:09)
[2020-02-29] MEDS ORDERED: MORPHINE SULFATE 10 MG/ML INJ IV PRN (15:09)
--- NOTE | 2020-02-29 15:18 | PDOC H&P ---
History of Present Illness Patient complains of: RUQ abdominal pain History of Present Illness: RAYMOND ESCALANTE is a 44 year old male with a 2-day history of worsening right upper quadrant abdominal pain. The patient has known gallstones, and was scheduled for gallbladder surgery in March, however his symptoms have s ignificantly increased over the last 48 hours. He reports nausea, vomiting, fatty food intolerance, and sharp/stabbing right upper quadrant abdominal pain. His pain is severe. He rates it as 8 out of 10. He denies any fevers or chills. His pain radiates around to his back and into his shoulder blade. Nothing makes his pain better. Movement and fatty foods make it worse. The patient denies chest pain, shortness of breath, fevers, chills, dizziness, blurry vision, orthostasis, headache. Social History Lives with: Spouse/Significant other Smoking Status: Current Every Day Smoker Family History Family History: Reviewed & Not Pertinent Parental Family History Reviewed: Yes Children Family History Reviewed: Yes Sibling(s) Family History Reviewed.: Yes Medication/Allergy Home Medications: Oxycodone HCl/Acetaminophen [Percocet 5-325 mg Tablet] 1 tab PO Q4H PRN #15 tab 01/29/20 Allergies/Adverse Reactions: No Known Allergies Allergy (Verified 01/23/20 10:18) Review of Systems Constitutional: ABSENT: anorexia, chills, fatigue, fever(s), headache(s), weakness Eyes: ABSENT: visual disturbances Ears: ABSENT: hearing changes Nose, Mouth, and Throat: ABSENT: headache(s) Cardiovascular: ABSENT: chest pain Respiratory: ABSENT: cough Gastrointestinal: PRESENT: abdominal pain, bloating, nausea, vomiting. ABSENT: hematemesis, hematochezia, melena Genitourinary: ABSENT: difficulty urinating Musculoskeletal: PRESENT: back pain Integumentary: ABSENT: pruritus, rash Neurological: ABSENT: confusion, convulsions, dizziness Psychiatric: ABSENT: anxiety, depression Endocrine: ABSENT: cold intolerance, heat intolerance Hematologic/Lymphatic: ABSENT: easy bleeding, easy bruising Physical Exam Vital Signs: Temp Pulse Resp BP Pulse Ox 97.9 F 51 L 16 132/88 H 97 02/29/20 12:22 02/29/20 12:22 02/29/20 08:00 02/29/20 12:22 02/29/20 12:22 Intake & Output 02/28/20 02/29/20 03/01/20 06:59 06:59 06:59 Intake Total 1000 Balance 1000 Weight 86.183 kg General appearance: PRESENT: no acute distress, cooperative Head exam: PRESENT: atraumatic, normocephalic Eye exam: PRESENT: EOMI, PERRLA. ABSENT: scleral icterus Mouth exam: PRESENT: moist, neck supple Neck exam: ABSENT: meningismus, tenderness Respiratory exam: PRESENT: unlabored. ABSENT: tachypnea, wheezes Cardiovascular exam: ABSENT: tachycardia Vascular exam: PRESENT: normal capillary refill GI/Abdominal exam: PRESENT: soft, tenderness - Right upper quadrant. ABSENT: distended, firm, Pruitt's sign Rectal exam: PRESENT: deferred Extremities exam: ABSENT: clubbing Musculoskeletal exam: ABSENT: deformity Neurological exam: PRESENT: alert, awake, oriented to person, oriented to place, oriented to time, oriented to situation, CN II-XII grossly intact Psychiatric exam: ABSENT: agitated, anxious, depressed Focused psych exam: ABSENT: delusional Skin exam: ABSENT: cyanosis, erythema, jaundice Results Laboratory Results: 02/29/20 06:20 02/29/20 06:20 02/29/20 02/29/20 02/29/20 06:20 06:20 06:48 WBC 12.4 H RBC 4.66 Hgb 13.7 Hct 41.2 MCV 88 MCH 29.4 MCHC 33.3 RDW 14.0 Plt Count 255 Seg Neutrophils % 76.0 Sodium 138.8 Potassium 3.9 Chloride 103 Carbon Dioxide 26 Anion Gap 10 BUN 12 Creatinine 0.85 Est GFR ( Amer) > 60 Glucose 110 Lactic Acid 0.9 Calcium 9.5 Total Bilirubin 0.5 AST 30 Alkaline Phosphatase 49 Total Protein 7.3 Albumin 4.7 Lipase 248.6 Urine Color Urine Appearance Urine pH Ur Specific [place] Urine Protein Urine Glucose (UA) Urine Ketones Urine Blood Urine Nitrite Ur Leukocyte Esterase Urine WBC (Auto) Urine RBC (Auto) 02/29/20 08:07 WBC RBC Hgb Hct MCV MCH MCHC RDW Plt Count Seg Neutrophils % Sodium Potassium Chloride Carbon Dioxide Anion Gap BUN Creatinine Est GFR ( Amer) Glucose Lactic Acid Calcium Total Bilirubin AST Alkaline Phosphatase Total Protein Albumin Lipase Urine Color YELLOW Urine Appearance CLEAR Urine pH 5.0 Ur Specific [place] 1.030 Urine Protein 30 H Urine Glucose (UA) NEGATIVE Urine Ketones TRACE H Urine Blood MODERATE H Urine Nitrite NEGATIVE Ur Leukocyte Esterase NEGATIVE Urine WBC (Auto) 1 Urine RBC (Auto) 12 Impressions: Acute Abdomen Series 02/29/20 06:15 IMPRESSION: 1. No acute cardiopulmonary disease. 2. Nonspecific abdomen. Abdomen Ultrasound 02/29/20 06:45 IMPRESSION: 1. Cholelithiasis. 2. Borderline dilated common duct, if clinically indicated consider MRCP. Abdomen MRI 02/29/20 08:05 IMPRESSION: Cholelithiasis noting uniform mural edema suggesting early cholecystitis. Chronic and incidental findings as detailed above. Assessment & Plan - Diagnosis (1) Acute cholecystitis Is this a current diagnosis for this admission?: Yes - Time Anticipated Discharge Disposition: Home, Self Care Anticipated Discharge Timeframe: within 24 hours - Plan Summary Plan Summary: 44-year-old male with known gallbladder disease. Today he reports increasing amounts of abdominal pain over the last 48 hours. He has gallbladder wall thickening on his ultrasound. He has a normal biliary ductal system on MRCP. His LFTs are normal. I have recommended cholecystectomy to treat his acute cholecystitis. The patient has agreed to this. Risk/benefits discussed, informed consent obtained, and all questions answered. Antibiotics now. Rapid Covid test now.
[2020-02-29] MEDS ORDERED: BUPIVACAINE HCL 0.25 % INJ/PF (2.5 MG/1 ML) 30 ML VIAL ONE (15:24)
[2020-02-29] MEDS ORDERED: HYDROMORPHONE HCL INJ/PF 2 MG/ML AMPULE ONE (16:15)
[2020-02-29] MEDS ORDERED: PROPOFOL INJ 200 MG/20 ML VIAL IV ONE (16:16)
[2020-02-29] MEDS ORDERED: MIDAZOLAM 2 MG/2 ML INJ ONE (16:16)
[2020-02-29] MEDS ORDERED: FENTANYL CITRATE INJ/PF 100 MCG/2 ML AMPUL IV PRN ×3 (17:09)
[2020-02-29] MEDS ORDERED: DIPHENHYDRAMINE HCL 50 MG/ML VIAL IV PRN (17:09)
[2020-02-29] MEDS ORDERED: PROMETHAZINE HCL INJ 25 MG/1 ML VIAL IV PRN ×2 (17:09)
[2020-02-29] MEDS ORDERED: MEPERIDINE HCL/PF INJ 25 MG/1 ML DISP.SYRIN IV PRN (17:09)
[2020-02-29] MEDS ORDERED: OXYCODONE-ACETAMINOPHEN 5-325 MG TABLET PO PRN ×2 (17:09)
--- NOTE | 2020-02-29 18:12 | Operative Report ---
Nonrecallable Operative Report DATE OF SURGERY: 02/29/20 PREOPERATIVE DIAGNOSIS: Acute cholecystitis POSTOPERATIVE DIAGNOSIS: Same as above OPERATION: Laparoscopic cholecystectomy SURGEON: SHAYNA RUIZ ANESTHESIA: GA TISSUE REMOVED OR ALTERED: Gallbladder COMPLICATIONS: None apparent ESTIMATED BLOOD LOSS: 50 cc PROCEDURE: Drains/implants: 15 Micronesian round Marcus drain in the gallbladder fossa. Procedure in detail: After informed consent was obtained, the patient was brought into the operating room and laid in the supine position. The area of the abdomen was prepped and draped in a normal sterile fashion. An infraumbilical incision was created with a 15 blade scalpel. Dissection was carried through the subcutaneous tissues using sharp and blunt dissection. The cicatrix was identified, grasped with a Sampson clamp, and retracted upwards. The linea alba fascia was incised sharply, the abdomen was entered sharply. The balloon trocar was inserted, and pneumoperitoneum was achieved. A subxiphoid 5 mm port was placed under direct laparoscopic visualization. 2 more 5 mm ports were placed in the right upper quadrant in similar fashion. Atraumatic graspers were placed through the 5 mm ports. The gallbladder was retracted cephalad. This was somewhat difficult, as it was tense, distended, and thickened. A cyst aspiration needle was used to aspirate approximately 80 cc of dark green bile from the gallbladder. It was more easily manipulated at this point. Adhesions were taken down from the wall of the gallbladder. The infundibulum was reached. Dissection was begun in the triangle of [place]. The cystic duct and cystic artery were identified, however there was a dense inflammatory reaction surrounding them. Owing to the dense inflammatory reaction, it was felt prudent to free the gallbladder from the liver, prior to ligation of the ductal structure. The artery was ligated high on the gallbladder using hemoclips. It was divided using laparoscopic scissors. The gallbladder was then freed from the liver using a mixture of blunt dissection, and electrocautery. Once the gallbladder was freed, the infundibulum was easily encircled with a PDS Endoloop. The infundibulum/cystic duct junction was secured with the PDS Endoloop. The infundibulum was then divided using scissors. After this was completed, the gallbladder was placed into an Endo Catch bag, and pulled out through the umbilicus. The camera was reinserted. The abdomen was then copiously irrigated and suctioned, until the effluent was clear. The hilum was then inspected. It was found to be free of any leakage of blood or bile. Once this was confirmed, a 15 Micronesian round Marcus drain was passed through the lateralmost trocar. It was situated into the gallbladder fossa. The drain was sutured to the skin using 2-0 nylon. The 5 mm trochars were then removed under direct laparoscopic visualization. The infraumbilical trocar was removed, and pneumoperitoneum was relieved. The infraumbilical fascia was closed using 0 Vicryl suture in [id number] fashion. The overlying skin was closed using 4-0 Vicryl Rapide suture in subcuticular fashion. Dressings were placed, and the procedure was concluded. All sponge, instrument, and needle counts were correct x2. Condition: Stable.
--- NOTE | 2020-02-29 18:42 | PDOC DISCHARGE SUMMARY ---
General - Admit/Disc Date/PCP Admission Date/Primary Care Provider: 02/29/20 15:39 Discharge Date: 02/29/20 - Discharge Diagnosis Final Diagnosis: Acute cholecystitis - Assessment Summary: 44-year-old male admitted to the hospital with acute cholecystitis. His main complaint was sharp, stabbing, unrelenting right upper quadrant pain. He has known about his gallstones for several months now. He received antibiotics in the ER. He was found to have a thickened gallbladder wall, and a normal common bile duct, with normal LFTs. This is consistent with acute cholecystitis. The patient was taken to the operating room where laparoscopic cholecystectomy was successfully performed. After surgery, the patient awoke, tolerated a small amount of food/liquid, and requested discharge. At this time I believe he has reached maximal hospital benefit. - Additional Information Resuscitation Status: Full Code Discharge Diet: As Tolerated Discharge Activity: Balance Activity w/Rest, No Lifting Over 10 Pounds, No Lifting/Push/Pulling Prescriptions: Hydrocodone/Acetaminophen [[place] 10-325 mg Tablet] 1 tab PO Q6HP PRN #14 tablet PRN Reason: For Pain Home Medications: Hydrocodone/Acetaminophen [[place] 10-325 mg Tablet] 1 tab PO Q6HP PRN #14 tablet 02/29/20 Additional Information: Discharge home. Diet as tolerated. Activity: No lifting greater than 10 pounds x 2 weeks. Follow-up with [facility] in 7 to 10 days. Okay to shower starting Saturday. Empty ART drain daily, and keep track of output. [place] 10/325 mg p.o. every 6 hours as needed for pain. No swimming pools, tub baths, or hot tubs x2 weeks. History of Present Illiness History of Present Illness: RAYMOND ESCALANTE is a 44 year old male with a 2-day history of worsening right upper quadrant abdominal pain. The patient has known gallstones, and was scheduled for gallbladder surgery in March, however his symptoms have significantly increased over the last 48 hours. He reports nausea, vomiting, fatty food intolerance, and sharp/stabbing right upper quadrant abdominal pain. His pain is severe. He rates it as 8 out of 10. He denies any fevers or chills. His pain radiates around to his back and into his shoulder blade. Nothing makes his pain better. Movement and fatty foods make it worse. The patient denies chest pain, shortness of breath, fevers, chills, dizziness, bl urry vision, orthostasis, headache. Physical Exam Vital Signs: Temp Pulse Resp BP Pulse Ox 97.8 F 84 18 136/86 H 96 02/29/20 17:57 02/29/20 18:27 02/29/20 18:27 02/29/20 18:27 02/29/20 18:27 Intake & Output 02/28/20 02/29/20 03/01/20 06:59 06:59 06:59 Intake Total 2200 Output Total 20 Balance 2180 Weight 86.183 kg Results Laboratory Results: WBC 12.4 10^3/uL (4.0-10.5) H 02/29/20 06:20 RBC 4.66 10^6/uL (4.35-5.55) 02/29/20 06:20 Hgb 13.7 g/dL (13.5-17.0) 02/29/20 06:20 Hct 41.2 % (37.9-51.0) 02/29/20 06:20 MCV 88 fl (80-97) 02/29/20 06:20 MCH 29.4 pg (27.0-33.4) 02/29/20 06:20 MCHC 33.3 g/dL (32.0-36.0) 02/29/20 06:20 RDW 14.0 % (11.5-14.0) 02/29/20 06:20 Plt Count 255 10^3/uL (150-450) 02/29/20 06:20 Lymph % (Auto) 16.2 % (13-45) 02/29/20 06:20 [place] % (Auto) 5.1 % (3-13) 02/29/20 06:20 Eos % (Auto) 1.9 % (0-6) 02/29/20 06:20 Baso % (Auto) 0.8 % (0-2) 02/29/20 06:20 Absolute Neuts (auto) 9.4 10^3/uL (1.7-8.2) H 02/29/20 06:20 Absolute Lymphs (auto) 2.0 10^3/uL (0.5-4.7) 02/29/20 06:20 Absolute Monos (auto) 0.6 10^3/uL (0.1-1.4) 02/29/20 06:20 Absolute Eos (auto) 0.2 10^3/uL (0.0-0.6) 02/29/20 06:20 Absolute Basos (auto) 0.1 10^3/uL (0.0-0.2) 02/29/20 06:20 Seg Neutrophils % 76.0 % (42-78) 02/29/20 06:20 Sodium 138.8 mmol/L (137-145) 02/29/20 06:20 Potassium 3.9 mmol/L (3.6-5.0) 02/29/20 06:20 Chloride 103 mmol/L (98-107) 02/29/20 06:20 Carbon Dioxide 26 mmol/L (22-30) 02/29/20 06:20 Anion Gap 10 (5-19) 02/29/20 06:20 BUN 12 mg/dL (7-20) 02/29/20 06:20 Creatinine 0.85 mg/dL (0.52-1.25) 02/29/20 06:20 Est GFR ( Amer) > 60 (>60) 02/29/20 06:20 Est GFR (MDRD) Non-Af > 60 (>60) 02/29/20 06:20 Glucose 110 mg/dL (75-110) 02/29/20 06:20 Lactic Acid 0.9 mmol/L (0.7-2.1) 02/29/20 06:48 Calcium 9.5 mg/dL (8.4-10.2) 02/29/20 06:20 Total Bilirubin 0.5 mg/dL (0.2-1.3) 02/29/20 06:20 Direct Bilirubin 0.3 mg/dL (0.0-0.4) 02/29/20 06:20 Neonat Total Bilirubin Not Reportable 02/29/20 06:20 Neonat Direct Bilirubin Not Reportable 02/29/20 06:20 Neonat Indirect Bili Not Reportable 02/29/20 06:20 AST 30 U/L (17-59) 02/29/20 06:20 ALT 21 U/L (<50) 02/29/20 06:20 Alkaline Phosphatase 49 U/L (38-126) 02/29/20 06:20 Total Protein 7.3 g/dL (6.3-8.2) 02/29/20 06:20 Albumin 4.7 g/dL (3.5-5.0) 02/29/20 06:20 Lipase 248.6 U/L (23-300) 02/29/20 06:20 Urine Color YELLOW 02/29/20 08:07 Urine Appearance CLEAR 02/29/20 08:07 Urine pH 5.0 (5.0-9.0) 02/29/20 08:07 Ur Specific [place] 1.030 02/29/20 08:07 Urine Protein 30 mg/dL (NEGATIVE) H 02/29/20 08:07 Urine Glucose (UA) NEGATIVE mg/dL (NEGATIVE) 02/29/20 08:07 Urine Ketones TRACE mg/dL (NEGATIVE) H 02/29/20 08:07 Urine Blood MODERATE (NEGATIVE) H 02/29/20 08:07 Urine Nitrite NEGATIVE (NEGATIVE) 02/29/20 08:07 Urine Bilirubin NEGATIVE (NEGATIVE) 02/29/20 08:07 Urine Urobilinogen 2.0 mg/dL (<2.0) H 02/29/20 08:07 Ur Leukocyte Esterase NEGATIVE (NEGATIVE) 02/29/20 08:07 Urine WBC (Auto) 1 /HPF 02/29/20 08:07 Urine RBC (Auto) 12 /HPF 02/29/20 08:07 Urine Mucus (Auto) FEW /LPF 02/29/20 08:07 Urine Ascorbic Acid NEGATIVE (NEGATIVE) 02/29/20 08:07 Urine Opiates Screen UNCONFIRMED POSITIVE 02/29/20 08:07 Urine Methadone Screen NEGATIVE 02/29/20 08:07 Ur Barbiturates Screen NEGATIVE 02/29/20 08:07 Ur Phencyclidine Scrn NEGATIVE 02/29/20 08:07 Ur Amphetamines Screen NEGATIVE 02/29/20 08:07 U Benzodiazepines Scrn NEGATIVE 02/29/20 08:07 Urine Cocaine Screen NEGATIVE 02/29/20 08:07 U Marijuana (THC) Screen NEGATIVE 02/29/20 08:07 Serum Alcohol < 10 mg/dL (NONE DETECTED) 02/29/20 06:20 Influenza A (RT-PCR) NEGATIVE (NEGATIVE) 02/29/20 15:00 Influenza B (RT-PCR) NEGATIVE (NEGATIVE) 02/29/20 15:00 RSV (RT-PCR) NEGATIVE (NEGATIVE) 02/29/20 15:00 SARS-CoV-2 Rap RNA(RT-PCR) NEGATIVE (NEGATIVE) 02/29/20 15:00 Impressions: Acute Abdomen Series 02/29/20 06:15 IMPRESSION: 1. No acute cardiopulmonary disease. 2. Nonspecific abdomen. Abdomen Ultrasound 02/29/20 06:45 IMPRESSION: 1. Cholelithiasis. 2. Borderline dilated common duct, if clinically indicated consider MRCP. Abdomen MRI 02/29/20 08:05 IMPRESSION: Cholelithiasis noting uniform mural edema suggesting early cholecystitis. Chronic and incidental findings as detailed above.
[2020-02-29] MEDS ORDERED: HYDROCODONE/ACETAMINOPHEN 10-325 MG TABLET PO PRN (18:49)
[2020-02-29 19:30] VITALS: BP 132/90
[2020-02-29] MEDS ORDERED: FAMOTIDINE INJ/PF 20 MG/2 ML SDV IV SCH ×2 (22:00)
== END 2020-02-29 20:00 | disposition home or self-care (01) ==
LOC: ER 05:13 → EH 15:39 → INTOOBSV 15:39 → 4W 18:44
PROVIDERS: ATTEND Surgery
DX: K80.12 Calculus of gallbladder with acute and chronic cholecystitis without obstruction (principal); Z20.828 Contact with and (suspected) exposure to other viral communicable diseases; F17.200 Nicotine dependence, unspecified, uncomplicated
CPT/HCPCS: 96376; 99285; 96374; 96375; 36415; 80307 ×2; 83605; 83690; 85025; 0241U ×4; 80053; 81001; 88304 ×2; 74181; 74022; 76705; 93976; 99140; 00790; 47562; G0378 ×2; J2250; J3490 ×3; J1100; J1885; J2765; J2710; J1170; J2405; J7121; J7030; J2704; J2543; C9803; 790